=== PATIENT | male | born 1975 | race African-American/Black ===

== ENCOUNTER 2017-02-15 11:56 | Outpatient (CLI) ==
[2017-02-15 12:44] LABS: BASOPHILS # (AUTO) 0.1 K/uL (0-0.2); EOSINOPHILS # (AUTO) 0.2 K/ul (0.0-0.7); EOSINOPHILS % (AUTO) 3.1 % (0.0-7.0); HEMOGLOBIN 16.7 g/dl (14.0-18.0); IMMATURE GRANULOCYTE % (AUTO) 0.4 % (0.0-5.0); LYMPHOCYTES # (AUTO) 2.3 K/uL (0.60-3.4); MEAN CORPUSCULAR HEMOGLOBIN 24.6 pg (27.0-31.0); MEAN CORPUSCULAR HGB CONC 32.7 (31.8-35.4); MEAN CORPUSCULAR VOLUME 75.1 fl (80.0-94.0); MONOCYTES # (AUTO) 0.5 K/uL (0.4-2.0); MONOCYTES % (AUTO) 8.8 (0-10); NEUTROPHILS # (AUTO) 2.2 K/ul (2.0-6.9); NEUTROPHILS % (AUTO) 42.7; PLATELET COUNT 335 10^3/uL (140-440); RED BLOOD COUNT 6.79 10^6/ul (4.70-6.10); WHITE BLOOD COUNT 5.14 K/ul (4.2-10.2)
[2017-02-15 13:23] LABS: ALBUMIN 4.2 g/dL (3.4-5.0); ALBUMIN/GLOBULIN RATIO 1.27; ANION GAP 17.6; BILIRUBIN,TOTAL 0.37 mg/dL (0.00-1.20); BUN/CREATININE RATIO 14.46; CALCIUM 10.3 mg/dL (8.2-10.2); CHOL/HDL RATIO 2.5 (4.5-6.4); CREATININE 1.59 mg/dL (0.60-1.10); POTASSIUM 4.6 mmol/L (3.5-5.1); TOTAL PROTEIN 7.5 g/dL (6.4-8.2)
== END 2017-02-15 11:57 | disposition home or self-care (01) ==
LOC: LAB 11:56
PROVIDERS: ATTEND Nurse Practitioner Family
DX: E11.9 Type 2 diabetes mellitus without complications (principal); I10 Essential (primary) hypertension
CPT/HCPCS: 36415; 80053; 80061; 83036; 84443; 85025

== ENCOUNTER 2017-05-18 09:17 | Outpatient (CLI) ==
[2017-05-18 09:33] LABS: BASOPHILS # (AUTO) 0.1 K/uL (0-0.2); BASOPHILS % (AUTO) 1.4 % (0.0-3.0); EOSINOPHILS # (AUTO) 0.2 K/ul (0.0-0.7); EOSINOPHILS % (AUTO) 4.3 % (0.0-7.0); HEMATOCRIT 51.3 % (42.0-52.0); HEMOGLOBIN 16.8 g/dl (14.0-18.0); LYMPHOCYTES # (AUTO) 2.1 K/uL (0.60-3.4); LYMPHOCYTES % (AUTO) 47.4 (10.0-50.0); MEAN CORPUSCULAR HEMOGLOBIN 24.3 pg (27.0-31.0); MEAN CORPUSCULAR HGB CONC 32.7 (31.8-35.4); MEAN CORPUSCULAR VOLUME 74.2 fl (80.0-94.0); MONOCYTES # (AUTO) 0.4 K/uL (0.4-2.0); MONOCYTES % (AUTO) 9.2 (0-10); NEUTROPHILS # (AUTO) 1.7 K/ul (2.0-6.9); NEUTROPHILS % (AUTO) 37.7; PLATELET COUNT 291 10^3/uL (140-440); RED BLOOD COUNT 6.91 10^6/ul (4.70-6.10); WHITE BLOOD COUNT 4.37 K/ul (4.2-10.2)
[2017-05-18 09:53] LABS: ALBUMIN/GLOBULIN RATIO 1.14; ANION GAP 15.4; BILIRUBIN,TOTAL 0.5 mg/dL (0.00-1.20); BUN/CREATININE RATIO 17.1; CALCIUM 10.4 mg/dL (8.2-10.2); CHOL/HDL RATIO 2.7 (4.5-6.4); CREATININE 1.52 mg/dL (0.60-1.10); POTASSIUM 4.4 mmol/L (3.5-5.1); TOTAL PROTEIN 7.5 g/dL (6.4-8.2)
== END 2017-05-18 09:18 | disposition home or self-care (01) ==
LOC: LAB 09:17
PROVIDERS: ATTEND Nurse Practitioner Family
DX: E78.5 Hyperlipidemia, unspecified (principal); E11.9 Type 2 diabetes mellitus without complications; I10 Essential (primary) hypertension
CPT/HCPCS: 36415; 80053; 80061; 83036; 85025

== ENCOUNTER 2017-08-23 12:39 | Outpatient (CLI) | END 2017-08-23 12:40 | disposition home or self-care (01) | LOC: LAB 12:39 | PROVIDERS: ATTEND Nurse Practitioner Family | DX: E11.9 Type 2 diabetes mellitus without complications (principal); I10 Essential (primary) hypertension; R53.83 Other fatigue | CPT/HCPCS: 36415; 80053; 80061; 83037; 84402; 85025 ==

== ENCOUNTER 2018-01-28 14:58 | Outpatient (CLI) | END 2018-01-28 14:59 | disposition home or self-care (01) | LOC: FCC-LAB 14:58 | PROVIDERS: ATTEND Nurse Practitioner Family | DX: E11.9 Type 2 diabetes mellitus without complications (principal); E75.6 Lipid storage disorder, unspecified; I10 Essential (primary) hypertension | CPT/HCPCS: 36415; 80053; 80061; 83037; 85025 ==

== ENCOUNTER 2018-02-08 10:32 | Outpatient (CLI) | END 2018-02-08 10:33 | disposition home or self-care (01) | LOC: FCC-LAB 10:32 | PROVIDERS: ATTEND Family Medicine | DX: E11.9 Type 2 diabetes mellitus without complications (principal); R71.8 Other abnormality of red blood cells | CPT/HCPCS: 36415; 82043; 82728; 83540; 83550 ==

== ENCOUNTER 2018-04-28 14:34 | Outpatient (CLI) | END 2018-04-28 14:35 | disposition home or self-care (01) | LOC: FCC-LAB 14:34 | PROVIDERS: ATTEND Family Medicine | DX: E11.22 Type 2 diabetes mellitus with diabetic chronic kidney disease (principal); N18.2 Chronic kidney disease, stage 2 (mild); I10 Essential (primary) hypertension | CPT/HCPCS: 36415; 80053; 83037 ==

== ENCOUNTER 2018-07-29 15:54 | Outpatient (CLI) | END 2018-07-29 15:55 | disposition home or self-care (01) | LOC: LAB 15:54 → FCC-LAB 15:55 | PROVIDERS: ATTEND Family Medicine | DX: E11.9 Type 2 diabetes mellitus without complications (principal) | CPT/HCPCS: 36415; 80053; 83037 ==

== ENCOUNTER 2019-01-18 11:10 | Outpatient (CLI) | END 2019-01-18 11:11 | disposition home or self-care (01) | LOC: RHC-LAB 11:10 → FCC-LAB 11:11 | PROVIDERS: ATTEND Family Medicine | DX: E11.9 Type 2 diabetes mellitus without complications (principal); E55.9 Vitamin D deficiency, unspecified | CPT/HCPCS: 36415; 80053; 80061; 82043; 82306; 83036 ==